=== PATIENT | male | born 1995 | race Caucasian/White ===

== ENCOUNTER → 2023-05-16 | Day surgery (SDC) | payer BC, MEDICAID ==
[~2023-05-16] VITALS: Ht 172.7 cm; Wt 87.1 kg
[~2023-05-16] MED LIST: BACITRACIN 14GM TUBE TOP ONE; BUPIVACAINE HCL/PF 0.5% (5MG/ML) 10ML ONE; FENTANYL CITRATE/PF 50MCG/ML 2ML VIAL ONE; HYDROCODONE/ACETAMINOPHEN 5/325MG TABLET PO PRN; IBUP-2741 PO; LABETALOL 5MG/ML SYR 20 MG/4 ML SYRINGE IV PRN; LACTATED RINGERS 1,000 ML IV SCH; LIDOCAINE HCL 1% 10 MG/ML 10ML VIAL ONE; MEPERIDINE HCL/PF 25MG/ML CPJ IV PRN; METHYLENE BLUE 50 MG/10 ML AMP IV ONE; MIDAZOLAM HCL 2 MG/2 ML VIAL ONE; ONDANSETRON HCL 4MG/2ML INJ IV PRN; PROPOFOL 200MG/20ML VIAL IV ONE; [UNRECOGNIZED DRUG - CODE] PO
[2023-05-16] MEDS: HYDROMORPHONE HCL/PF 2MG/ML CPJ IV PRN ×2 (08:49→08:55)
[2023-05-16 10:22] VITALS: BP 133/80; PULSE 71; RESP 15
== END | disposition home or self-care (01) ==
LOC: OR 06:03
PROVIDERS: ATTEND Surgery
DX: K60.3 Anal fistula (principal); Z87.891 Personal history of nicotine dependence; Z79.899 Other long term (current) drug therapy; Z98.890 Other specified postprocedural states; Z88.2 Allergy status to sulfonamides
CPT/HCPCS: 46270; J3010; J3490 ×2; Q9968; J2250; J2704; J1170